=== PATIENT | female | born 1955 | race Caucasian/White ===

== ENCOUNTER 2025-02-24 14:46 | Outpatient (CLI) | payer MEDICARE, OTHER | END 2025-02-24 14:47 | disposition home or self-care (01) | LOC: CSHMAMMO 14:46 | PROVIDERS: ATTEND Internal Medicine | DX: Z12.31 Encounter for screening mammogram for malignant neoplasm of breast (principal); Z80.3 Family history of malignant neoplasm of breast; N64.89 Other specified disorders of breast | CPT/HCPCS: 77063; 77067 ==

== ENCOUNTER 2025-03-03 13:44 | Outpatient (CLI) | payer MEDICARE, OTHER | END 2025-03-03 13:45 | disposition home or self-care (01) | LOC: CSHMAMMO 13:44 | PROVIDERS: ATTEND Internal Medicine | DX: N64.89 Other specified disorders of breast (principal) | CPT/HCPCS: 76642; 77065; G0279 ==

== ENCOUNTER 2025-04-26 12:38 | Outpatient (CLI) | payer MEDICARE, OTHER | END 2025-04-26 12:39 | disposition home or self-care (01) | LOC: CSHULT 12:38 | PROVIDERS: ATTEND Internal Medicine | DX: N18.31 Chronic kidney disease, stage 3a (principal); N28.89 Other specified disorders of kidney and ureter | CPT/HCPCS: 76770 ==